=== PATIENT | female | born 1975 | race Caucasian/White ===

== ENCOUNTER 2019-07-07 16:35 | Emergency (ER) | payer MEDICAID, SELFPAY ==
[2019-07-07 16:36] VITALS: BP 166/99; PULSE 82; RESP 16; TEMP 35.7; O2SAT 100; BMI 42.2
--- NOTE | 2019-07-07 16:38 | RAD_ITS ---
STUDY: X-RAY - LEFT SHOULDER REASON FOR EXAM: Female, 43 years old. Pain TECHNIQUE: 4 view(s) of the shoulder. COMPARISON: None. FINDINGS: Normal glenohumeral articulation. Normal acromioclavicular joint. Normal acromion. Normal humeral head and visualized proximal humerus. The soft tissue structures are unremarkable. Normal visualized pulmonary apex. RAD/Shoulder min 2 Views IMPRESSION: Normal x-ray examination of the shoulder. Electronically Signed: Dominick Gallegos, at 16:51 EST Tel , Service support ,
[2019-07-07] MEDS: morphine 8 MG/ML Syringe IM (18:30)
[2019-07-07] MEDS: Ondansetron 4 MG/2 ML Vial IM (18:30)
[2019-07-07 18:33] VITALS: BP 138/54; PULSE 84; RESP 16; O2SAT 97
--- NOTE | 2019-07-07 18:37 | DCINST.ED_ITS ---
ED Disposition - Plan for ED Patient: Instructions: Shoulder Sprain Prescriptions: Hydrocodone Bitart/Apap 5-325 [[place] 5MG-325MG] 1 tablet PO Q6H PRN PRN 3 Days #10 tablet PRN Reason: Pain Transmission Status: Received by [facility] [id number] Referrals: Chelsea JONES [Other]
--- NOTE | 2019-07-07 18:37 | ED.DEP ---
ED Disposition - Plan for ED Patient: Instructions: Shoulder Sprain Prescriptions: Hydrocodone Bitart/Apap 5-325 [[place] 5MG-325MG] 1 tablet PO Q6H PRN PRN 3 Days #10 tablet PRN Reason: Pain Transmission Status: Received by [facility] [id number] Referrals: Chelsea JONES [Other]
--- NOTE | 2019-07-07 18:47 | ED.DCSUM_ITS ---
- ER Visit Summary Date of Service: 07/07/19 Chief Complaint: Left shoulder pain History of Present Illness: The patient is a 43 F presenting with left shoulder pain. Patient states this has been ongoing for several months. States it started in October. She has been seen by chiropractor, orthopedics, and pain management. She states she has had cortisone injections. She is awaiting appointment with a new orthopedic surgeon at [facility] in July. She states she has been told in the past that her rotator cuff was torn. She states she has been told that she needs part of her clavicle removed. She states she is no longer in pain management. She denies new injury. Denies new complaints. Physical Examination: Vitals are stable. Patient is afebrile. Alert no acute distress. HEENT exam is unremarkable. Neck is supple. Lungs are clear and equal bilaterally. Heart is regular rate and rhythm. Extremities left anterior shoulder tenderness with painful range of motion. No erythema or warmth. Neurovascular intact distally. Skin is warm and dry. No focal neurologic deficit. Remainder of exam is unremarkable. Emergency Department Course and Treatment: Left shoulder x-ray shows normal x- ray examination of the shoulder. She was given morphine, Zofran IM. She is advised to follow-up with orthopedic surgeon. Advised return to the ED for worsening complaints. Disposition: Discharge home Impression: Acute on chronic left shoulder pain This note was generated with [employer] dictation software. It may contain incorrect words, spelling, and punctuation that were not noted in review of the chart prior to signing ED Disposition - Plan for ED Patient: Instructions: Shoulder Sprain Prescriptions: Hydrocodone Bitart/Apap 5-325 [[place] 5MG-325MG] 1 tab PO Q6H PRN PRN 3 Days #10 tab PRN Reason: Pain Transmission Status: Received by [facility] [id number] Referrals: Chelsea JONES [Other]
[2019-07-07 18:55] VITALS: BP 119/74; PULSE 64; RESP 16; O2SAT 97
== END 2019-07-07 18:57 | disposition home or self-care (01) ==
PROVIDERS: Emergency Provider Emergency Medicine
DX: M25.512 Pain in left shoulder (principal); G89.29 Other chronic pain; Z72.0 Tobacco use
CPT/HCPCS: 73030; 96372; 99282; J2405

== ENCOUNTER 2020-09-06 15:58 | Emergency (ER) | payer MEDICAID, SELFPAY ==
[2020-09-06 15:59] VITALS: BP 163/104; PULSE 84; RESP 17; TEMP 36; O2SAT 96; BMI 45.5
--- NOTE | 2020-09-06 16:09 | ED.VIS.GEN ---
History of Present Illness Chief Complaint: Dental Informant: Patient Onset: Days Context: Gradual Onset Timing: Continuous Current Severity: Moderate Maximum Severity: Moderate Narrative: Patient is a 45-year-old female with no significant medical history the presents to the emergency department dental pain. Patient states she said pain in her upper right jaw for the past 3 days. She states that she has multiple cavities. She cannot recall any trauma. The last time she was seen a dentist was 2 months ago. She states over the past 2 days, is gotten more swollen. She denies trouble speaking or swallowing. She has tried Orajel with little improvement. Prior similar symptoms: No Recent Illness/Hospitalization: No Past Medical History - Allergies and Home Meds Allergies/Adverse Reactions: Allergies sumatriptan [From Imitrex] Allergy (Verified 09/06/20 15:58) Hives sumatriptan succinate [From Imitrex] Allergy (Verified 09/06/20 15:58) Hives Primary Care Physician: [facility] Doctor,Out of [Primary Care Provider] - Prior records reviewed: Yes Past Medical History: None Surgical History: noncontributory Smoking Status: Current every day smoker Review of Systems General: Denies: Chills, Fever, Sweats Eyes: Denies: Visual changes - bilaterally, Diplopia ENT: Denies: Rhinorrhea, Sore throat Cardiovascular: Denies: Chest pain, Palpitations Respiratory: Denies: Dyspnea, Cough, Dyspnea on exertion Gastrointestinal: Denies: Abdominal pain, Nausea, Vomiting, Diarrhea, Melena, Hematochezia Genitourinary: Denies: Dysuria, Hematuria, Frequency Musculoskeletal: Denies: Back pain, Extremity Pain Skin: Denies: Rash, Wounds Neurological: Denies: Headache, Weakness, Numbness Physical Exam Vital Signs/Narrative: Vital Signs Temp Pulse Resp BP Pulse Ox 09/06/20 15:59 96.8 F L 84 17 163/104 H 96 Inital Vital Signs reviewed: Yes General: Well nourished, Well developed, No Acute Distress Head: Normocephalic, Atraumatic Eyes: Perrl, EOMI ENT: Moist mucous membranes, No rhinorrhea, - - Patient has widespread dental caries. Submental space is soft. There is tenderness over tooth 2 and 3. There is mild erythema of the gumline. No trismus or stridor. Neck: Supple, Nontender Cardiovascular: Regular rate, Regular rhythm, No murmurs Respiratory: No distress, CTA bilaterally, Chest nontender Abdomen: Soft, Nontender, Nondistended, Normal bowel sounds Back: Nontender, Normal Inspection Extremities: Nontender, No edema Skin: Normal color, No rash Neurological: Alert, Oriented x3, Cranial nerves II-XII grossly intact, Normal Strength, Normal Sensation Psychological: Normal affect, Normal Mood Diagnostic/Tx/Re-eval - Medical Decision Making Patient does have evidence of apical abscess. There is no evidence of Earnest angina. Her submental space is soft. There is no trismus or stridor. Patient be started on Augmentin. She will given a short course of analgesics and was counseled to follow-up with dentistry. Impression 1 1. Dental abscess ED Disposition - Plan for ED Patient: Instructions: Dental Abscess Prescriptions: Amox/Clavulanate Tablet [Augmentin Tablet] 875 mg PO Q12H #20 tab Prescription Printed Hydrocodone Bitart/Apap 5-325 [[place] 5MG-325MG] 1 tab PO Q6H PRN PRN 3 Days #10 tab PRN Reason: Pain Prescription Printed Referrals: [facility] Doctor,Out of [Primary Care Provider] -
[2020-09-06] MEDS: HYDROcodone Bitartrate/Apap 5/325 Tablet PO (16:18)
[2020-09-06] MEDS: Amox/Clavulanate 875 MG Tablet PO (16:18)
== END 2020-09-06 16:35 | disposition home or self-care (01) ==
LOC: ED 16:28
PROVIDERS: Emergency Provider Emergency Medicine
DX: K04.7 Periapical abscess without sinus (principal); F17.200 Nicotine dependence, unspecified, uncomplicated
CPT/HCPCS: 99283

== ENCOUNTER 2021-04-02 08:01 | Emergency (ER) | payer MEDICAID, SELFPAY ==
[2021-04-02 08:03] VITALS: BP 153/92; PULSE 73; RESP 16; TEMP 36; O2SAT 97; BMI 40.3
--- NOTE | 2021-04-02 10:00 | ED.VIS.DENTA ---
HPI History of Present Illness Chief Complaint: Dental Informant: patient Narrative Narrative: Patient's had soreness in the upper tooth off-and-on in the past. Couple days ago she bit into a crouton and thinks a piece may have broken off. The tooth started hurting more last night. She has now gotten some drainage near the tooth with the bad taste. She has no systemic symptoms such as fevers chills nausea or vomiting. She does have insulin resistance and is on Trulicity. Biting makes the symptoms worse. Nothing makes them better. No trouble swallowing or breathing. PFSH PFSH Medical History Diabetes RSD (reflex sympathetic dystrophy) Home Medications dulaglutide [Trulicity] 0.75 mg SUBCUT QWEEK 04/02/21 [History Last Taken Unknown] naproxen 500 mg PO BID #20 tab 04/02/21 [Rx Last Taken Unknown] penicillin V potassium 500 mg PO 4X/DAY #40 tab 04/02/21 [Rx Last Taken Unknown] Allergy/AdvReac Type Severity Reaction Status Date / Time sumatriptan [From Imitrex] Allergy Hives Verified 04/02/21 08:06 sumatriptan succinate Allergy Hives Verified 04/02/21 08:06 [From Imitrex] Social History Smoking Status: Never smoker ROS ROS ED Constitutional Constitutional ED: Denies chills or fever(s) ENT ENT ED: Reports other Details: See history of present illness. ; Denies ear pain, rhinorrhea or sore throat Cardiovascular Cardiovascular: Denies chest pain Gastrointestinal Gastrointestinal: Denies nausea or vomiting Musculoskeletal Musculoskeletal: Denies arthralgias or myalgias Integumentary Denies rash Neurologic Neurologic: Denies headache(s) Hematologic/Lymphatic Hematologic/Lymphatic: Denies easy bleeding or easy bruising EXAM Physical Exam Const Vital Signs: 04/02/21 08:03 Temperature 96.8 F L Temperature Source Temporal Pulse Rate 73 Respiratory Rate 16 Blood Pressure 153/92 H Blood Pressure Mean 112 Pulse Ox 97 Oxygen Delivery Method Room Air Positive well nourished, well developed and obese General Appearance ED: well developed and NAD Nutritional Appearance: obese HEENT HEENT Narrative: Patient has erythema of the gums and superior gumline near the right lateral incisor area. She has multiple areas of prior dental work. There is no drainable abscess. Voice is normal. No Earnest angina. Eyes PERRL and EOMs intact bilaterally Neck no lymphadenopathy and supple Neck Narrative: No swelling or lymphadenopathy. No asymmetry. Resp normal respiratory effort Neuro oriented x3 Sensorium / Orientation: alert Psych mental status grossly normal Skin no rashes or lesions noted MDM MDM MDM Narrative Medical decision making narrative: Patient will be treated with NSAIDs and antibiotics. She has erythema and drainage. She will follow up with a dentist. Return with worsening pain nausea vomiting fevers or other concerns. Discharge Plan Triage Chief Complaint: Dental ED Provider: [facility] [place] Dx/Rx/DC Orders Clinical Impression: Pain, dental Instructions: Dental Abscess Prescriptions: New penicillin V potassium 500 MG tablet 500 mg PO 4X/DAY Qty: 40 RF: 0 naproxen 500 MG tablet 500 mg PO BID Qty: 20 RF: 0 No Action Trulicity 0.75 mg/0.5 mL pen injector 0.75 mg SUBCUT QWEEK RF: 0 Referrals: Peace Edwards [Other] Activity Restrictions/Additional Instructions: See dentist as soon as possible. Disposition Disposition: Home, Self Care
[2021-04-02 11:00] VITALS: BP 142/79; PULSE 84; RESP 20; O2SAT 97
--- NOTE | 2021-04-02 11:00 | ED.RN ---
THIS NURSE REVIEWED D/C INSTRUCTIONS WITH PT AND VISITOR. PT VERBALIZED UNDERSTANDING OF INSTRUCTIONS. PT DENIES FURTHER NEEDS OR QUESTIONS AT THIS TIME.
== END 2021-04-02 11:01 | disposition home or self-care (01) ==
LOC: ED 10:18
PROVIDERS: Emergency Provider Emergency Medicine
DX: K08.89 Other specified disorders of teeth and supporting structures (principal); E66.9 Obesity, unspecified; E11.9 Type 2 diabetes mellitus without complications; G90.50 Complex regional pain syndrome I, unspecified; Z79.1 Long term (current) use of non-steroidal anti-inflammatories (NSAID); Z79.899 Other long term (current) drug therapy
CPT/HCPCS: 99282

== ENCOUNTER 2021-04-15 20:19 | Emergency (ER) | payer MEDICAID, SELFPAY ==
[2021-04-15 20:20] VITALS: BP 132/90; PULSE 86; RESP 18; TEMP 36.2; O2SAT 98; BMI 40.8
--- NOTE | 2021-04-15 22:02 | ED.RN ---
PT C/O RSD WORSENING. STARTED WORK A FEW WEEKS AGO. STATES THE PAIN IS BEYOND WHAT SHE CAN MANAGE AT THIS TIME. FELL IN BATHTUB THIS AM AND INJURED RT SHOULDER, BUT MOSTLY CONCERNED ABOUT WORSENING RSD PAIN.
--- NOTE | 2021-04-15 22:24 | EX.ED.DYSGE1 ---
HPI History of Present Illness Chief Complaint: General Illness Detail of Chief Complaint: Pain due to complex pain syndrome right and left leg and feet Informant: patient Onset/Context/Timing Onset: Month(s) Timing: Continuous and Waxes and wanes Quality: Lower extremities Location: Legs and feet Current Severity: Moderate Maximum Severity: Severe Worsened by: Light touch, weightbearing Relieved by: Nothing Associated Symptoms Associated Symptoms: None Narrative Narrative: Patient is a 45-year-old morbidly obese woman who presents with exacerbation of her complex pain syndrome. She had traumatic injury in the remote past. She had surgery for hallux deformity of her left great toe and surgery of her second, third and fourth right toe. She developed the complex pain syndrome after both surgeries. Her orthopedist is referring her to pain management. She has no other symptoms. Prior similar symptoms: Yes Recent Illness/Hospitalization: No PFSH PFSH Medical History Diabetes RSD (reflex sympathetic dystrophy) Home Medications dulaglutide [Trulicity] 0.75 mg SUBCUT QWEEK 04/02/21 [History Last Taken Unknown] naproxen 500 mg PO BID #20 tab 04/02/21 [Rx Last Taken Unknown] penicillin V potassium 500 mg PO 4X/DAY #40 tab 04/02/21 [Rx Last Taken Unknown] Allergy/AdvReac Type Severity Reaction Status Date / Time sumatriptan [From Imitrex] Allergy Hives Verified 04/15/21 20:22 sumatriptan succinate Allergy Hives Verified 04/15/21 20:22 [From Imitrex] Social History (Updated 04/15/21 @ 22:[address] Brian Gold MD) household members: significant other Smoking Status: Never smoker substance use type: does not use ROS ROS ED Constitutional Constitutional ED: Denies chills, fever(s), subjective, sweats or weight loss Musculoskeletal Musculoskeletal: Reports other; Denies arthralgias, back pain, myalgias or neck pain Neurologic Neurologic: Denies headache(s), paresthesias or weakness Endocrine Endocrinology: Denies polydipsia, polyphagia or polyuria Allergic/Immunologic Allergic/Immunologic ED: Denies mouth swelling or urticaria EXAM Physical Exam Const Vital Signs: 04/15/21 20:20 Temperature 97.1 F L Temperature Source Temporal Pulse Rate 86 Respiratory Rate 18 Blood Pressure 132/90 H Blood Pressure Mean 104 Pulse Ox 98 Oxygen Delivery Method Room Air Positive well nourished, well developed and obese General Appearance ED: well developed and NAD Nutritional Appearance: obese HEENT HEENT Narrative: Head is atraumatic normocephalic. Eyes PERRL and EOMs intact bilaterally General Eye ED: Negative for pale conjunctiva or scleral icterus Resp normal respiratory effort Cardio regular rate and regular rhythm Extremity normal to inspection Extremity Narrative: Healed scars from prior surgery. Patient has pain on proportion to light touch. Symptoms are not inconsistent with complex pain syndrome. Plan is opiate analgesia and work excuse. She is to follow-up with her doctor for pain management. General Extremety ED: Yes edema and tenderness General Extremity: edema Neuro oriented x3, CN's II-XII intact bilaterally and no sensory deficits noted Sensorium / Orientation: alert Motor Exam: strength 5/5 throughout Psych Mood & Affect: depressed Skin no rashes or lesions noted MDM MDM MDM Narrative Medical decision making narrative: Exacerbation of complex pain syndrome Discharge Plan Triage Chief Complaint: General Illness ED Provider: Brian Gold Dx/Rx/DC Orders Clinical Impression: Complex regional pain syndrome i of lower limb, bilateral Instructions: Understanding the Pain Response Prescriptions: No Action Trulicity 0.75 mg/0.5 mL pen injector 0.75 mg SUBCUT QWEEK RF: 0 penicillin V potassium 500 MG tablet 500 mg PO 4X/DAY Qty: 40 RF: 0 naproxen 500 MG tablet 500 mg PO BID Qty: 20 RF: 0 Stand Alone Forms: ED Work / School Excuse Primary Care Provider: NOT,DEFINED Referrals: NOT,DEFINED [Primary Care Provider] - Doctor,Your [STAFF PHYSICIAN] - As soon as possible Disposition Disposition: Home, Self Care
[2021-04-15] MEDS: oxyCODONE 5 MG Tablet PO (22:41)
== END 2021-04-15 23:11 | disposition home or self-care (01) ==
LOC: ED 22:32
PROVIDERS: Emergency Provider Emergency Medicine
DX: G90.523 Complex regional pain syndrome I of lower limb, bilateral (principal); E66.9 Obesity, unspecified; E11.9 Type 2 diabetes mellitus without complications
CPT/HCPCS: 99283